=== PATIENT | male | born 1990 ===

== ENCOUNTER 2024-06-20 22:03 | Emergency (ER) | payer SELFPAY ==
[2024-06-20 22:05] VITALS: BMI 26.2
[2024-06-20 22:32] VITALS: BP 146/93; PULSE 100; RESP 18; TEMP 36.7; O2SAT 95
--- NOTE | 2024-06-20 22:36 | PD.EDRME ---
Rapid Medical Screening Exam RME Arrival date/time: 06/20/24 22:03 34 yo m present to ED for c/o of n/v, 5 days of alcohol intake I have greeted and performed a focused initial assessment of this patient. A comprehensive ED assessment and evaluation of the patient, analysis of all test results, and completion of the medical decision making process will be conducted by additional ED providers. Chief Complaint: Nausea/Vomiting/Diarrhea Time Seen by Provider: 06/20/24 22:16 Vital signs: Vital Signs Temperature 98.0 F 06/20/24 22:32 Pulse Rate 100 06/20/24 22:32 Respiratory Rate 18 06/20/24 22:32 Blood Pressure 146/93 H 06/20/24 22:32 Pulse Oximetry (%) 95 06/20/24 22:32 Oxygen Delivery Method Room Air 06/20/24 22:32
--- NOTE | 2024-06-20 23:09 | PC.NURSE ---
called pt to medicated and no answer at this time
== END 2024-06-20 23:57 | disposition left against medical advice (07) ==
PROVIDERS: Emergency Provider Emergency Medicine
DX: R11.2 Nausea with vomiting, unspecified (principal); R19.7 Diarrhea, unspecified; Z53.29 Procedure and treatment not carried out because of patient's decision for other reasons
CPT/HCPCS: 80053; 80307; 80320; 83690; 83735; 85025; 99281; G0480